=== PATIENT | female | born 1955 | race Caucasian/White ===

== ENCOUNTER 2017-06-21 19:26 | Emergency (ER) | payer MEDICAID ==
[~2017-06-21] VITALS: Ht 160 cm; Wt 98.4 kg
[~2017-06-21 19:26] MED LIST: HOME OXYGEN; VALIUM5 MG PO; VENTOLIN H0.09 MG/A1 INH; XOP0.63
[2017-06-21 21:22] LABS: BASOPHIL % 0.5 % (0-2); PLATELET COUNT 214 x10^3mcL (130-400); RED CELL DISTRIBUTION WIDTH 16.4 % (11.5-14.5)
[2017-06-21 21:26] LABS: CALCIUM 9.1 mg/dL (8.5-10.1); CARBON DIOXIDE 24.9 mmol/L (21-32); CHLORIDE SERUM 106 mmol/L (98-107); CREATININE SERUM 0.7 mg/dL (0.6-1.0); GFR1 > 60 mL/min; GLUCOSE SERUM 107 mg/dL (74-106); POTASSIUM SERUM 3.7 mmol/L (3.5-5.1); SODIUM SERUM 139 mmol/L (136-145)
[2017-06-21 21:30] LABS: ALKALINE PHOSPHATASE 99 U/L (46-116); ALT/SGPT 17 U/L (14-59); AST/SGOT 11 U/L (15-37); BILIRUBIN TOTAL 0.3 mg/dL (0.20-1.00); TOTAL PROTEIN, SERUM 7.6 g/dL (6.4-8.2)
[2017-06-21 21:32] LABS: ALBUMIN 3.3 g/dL (3.4-5.0)
[2017-06-21 21:33] VITALS: BP 138/88
== END 2017-06-21 21:33 | disposition home or self-care (01) ==
LOC: ED 19:26
PROVIDERS: Emergency Medicine
DX: M79.641 Pain in right hand (principal); M79.89 Other specified soft tissue disorders; F17.200 Nicotine dependence, unspecified, uncomplicated; J44.9 Chronic obstructive pulmonary disease, unspecified; Z88.5 Allergy status to narcotic agent; Z88.8 Allergy status to other drugs, medicaments and biological substances; Z71.6 Tobacco abuse counseling; Z88.7 Allergy status to serum and vaccine
CPT/HCPCS: 36415; 99406; J1100

== ENCOUNTER 2017-06-22 22:14 | Emergency (ER) | payer MEDICAID ==
[2017-06-22 22:21] VITALS: BP 150/107
== END 2017-06-22 23:18 | disposition left against medical advice (07) ==
LOC: ED 22:14
DX: Z53.21 Procedure and treatment not carried out due to patient leaving prior to being seen by health care provider (principal)

== ENCOUNTER 2019-02-19 00:21 | Emergency (ER) | payer MEDICAID ==
[~2019-02-19] VITALS: Ht 160 cm; Wt 81.6 kg
[2019-02-19 00:26] VITALS: Ht 160 cm; Wt 81.6 kg
[2019-02-19 01:33] LABS: BASOPHIL % 0.6 % (0-2); PLATELET COUNT 231 x10^3mcL (130-400)
[2019-02-19 01:50] LABS: CALCIUM 9.2 mg/dL (8.5-10.1); CARBON DIOXIDE 27.8 mmol/L (21-32); CHLORIDE SERUM 108 mmol/L (98-107); CREATININE SERUM 0.9 mg/dL (0.6-1.0); GFR1 > 60 mL/min; GLUCOSE SERUM 108 mg/dL (74-106); POTASSIUM SERUM 3.4 mmol/L (3.5-5.1); SODIUM SERUM 145 mmol/L (136-145)
[2019-02-19 01:55] LABS: ALKALINE PHOSPHATASE 76 U/L (46-116); ALT/SGPT 20 U/L (14-59); AST/SGOT 12 U/L (15-37); BILIRUBIN TOTAL 0.47 mg/dL (0.20-1.00); CHOLESTEROL 155 mg/dL (<200); LIPASE 53 IU/L (73-393); TRIGLYCERIDES 123 mg/dL (<150)
[2019-02-19 01:57] LABS: T3 TOTAL 1.05 ng/mL
[2019-02-19 01:58] LABS: FREE T4 0.98 ng/dL (0.76-1.46); FREE THYROXINE INDEX 2.6 ug/dL (1.4-4.5); RED CELL DISTRIBUTION WIDTH 16.9 % (11.5-14.5); T4(THYROXINE) 7.8 ug/dL (4.7-13.3)
[2019-02-19 01:59] LABS: ALBUMIN 3.3 g/dL (3.4-5.0); CHOLESTEROL/HDL RATIO 5.3; HDL CHOLESTEROL 29 mg/dL (40-60)
[2019-02-19 03:04] VITALS: BP 167/89
== END 2019-02-19 03:04 | disposition home or self-care (01) ==
LOC: ED 00:21
PROVIDERS: Specialist
DX: R60.9 Edema, unspecified (principal); R07.89 Other chest pain; R51 Headache; I10 Essential (primary) hypertension; F43.0 Acute stress reaction; J44.9 Chronic obstructive pulmonary disease, unspecified; F41.9 Anxiety disorder, unspecified; Z88.5 Allergy status to narcotic agent; Z88.8 Allergy status to other drugs, medicaments and biological substances
CPT/HCPCS: 36415; 83880; 84439; Q0092

== ENCOUNTER 2019-08-05 23:31 | Emergency (ER) | payer MEDICAID ==
[~2019-08-05] VITALS: Ht 160 cm; Wt 99.3 kg
[2019-08-05 23:40] VITALS: Ht 160 cm; Wt 99.3 kg
[2019-08-06 00:42] LABS: BASOPHIL % 0.2 % (0-2); PLATELET COUNT 241 x10^3mcL (130-400)
[2019-08-06 00:44] LABS: RED CELL DISTRIBUTION WIDTH 16.2 % (11.5-14.5)
[2019-08-06 00:53] LABS: CALCIUM 8.5 mg/dL (8.5-10.1); CARBON DIOXIDE 30.6 mmol/L (21-32); POTASSIUM SERUM 3.7 mmol/L (3.5-5.1)
[2019-08-06 00:57] LABS: ALBUMIN 3.2 g/dL (3.4-5.0); BILIRUBIN TOTAL 0.3 mg/dL (0.20-1.00); TOTAL PROTEIN, SERUM 7.1 g/dL (6.4-8.2)
[2019-08-06 02:04] VITALS: BP 142/70
== END 2019-08-06 02:04 | disposition home or self-care (01) ==
LOC: ED 23:31
PROVIDERS: Emergency Medicine
DX: J44.1 Chronic obstructive pulmonary disease with (acute) exacerbation (principal)
CPT/HCPCS: 83880; 87804; J2405; J2930; J7613; J7644; Q0092

== ENCOUNTER 2019-09-18 20:43 | Observation (INO) | payer OTHER ==
[~2019-09-18] VITALS: Ht 160 cm; Wt 103.4 kg
[2019-09-18 21:55] LABS: BASOPHIL % 0.3 % (0-2); PLATELET COUNT 253 x10^3mcL (130-400)
[2019-09-18 21:56] LABS: RED CELL DISTRIBUTION WIDTH 15.1 % (11.5-14.5)
[2019-09-18 22:13] LABS: CALCIUM 8.8 mg/dL (8.5-10.1); CARBON DIOXIDE 27.8 mmol/L (21-32); POTASSIUM SERUM 4.1 mmol/L (3.5-5.1)
[2019-09-18 22:17] LABS: ALBUMIN 3.4 g/dL (3.4-5.0); BILIRUBIN TOTAL 0.2 mg/dL (0.20-1.00); TOTAL PROTEIN, SERUM 7.5 g/dL (6.4-8.2)
[2019-09-18 22:30] LABS: CK-MB 0.9 ng/mL (0-3.6)
[2019-09-18 22:54] LABS: UA SPECIFIC GRAVITY 1.025 (1.005-1.035); microscopic required? YES; urine erythrocyte 2+ (NEGATIVE)
[2019-09-18] MEDS ORDERED: AVAPRO150 MG PO (23:45)
[2019-09-18] MEDS ORDERED: MICROZIDE12.5 MG PO (23:46)
[2019-09-19 00:40] VITALS: BP 128/63
[2019-09-19 00:46] VITALS: Ht 160 cm; Wt 103.4 kg
[2019-09-19 04:33] VITALS: BP 128/63
[2019-09-19 05:33] VITALS: BP 116/41
[2019-09-19 06:43] LABS: BASOPHIL % 0.3 % (0-2); PLATELET COUNT 216 x10^3mcL (130-400)
[2019-09-19 07:00] LABS: BILIRUBIN TOTAL 0.3 mg/dL (0.20-1.00); CALCIUM 8.3 mg/dL (8.5-10.1); CARBON DIOXIDE 30.8 mmol/L (21-32); TOTAL PROTEIN, SERUM 6.4 g/dL (6.4-8.2)
[2019-09-19 07:01] LABS: ALBUMIN 2.9 g/dL (3.4-5.0)
[2019-09-19 07:17] LABS: RED CELL DISTRIBUTION WIDTH 15.1 % (11.5-14.5)
[2019-09-19 08:47] VITALS: BP 128/68
[2019-09-19] MEDS ORDERED: TUSSIN CF COUG118 ML PO (10:42)
[2019-09-19] MEDS ORDERED: ZITHROMAX1 GM/Packe PO (10:45)
[2019-09-19] MEDS ORDERED: METHYLPREDNISOLO4 M2 PO (10:45)
[2019-09-19 11:28] VITALS: BP 128/75
== END 2019-09-19 11:40 | disposition home or self-care (01) ==
LOC: ED 20:43 → DU 22:39
PROVIDERS: Emergency Medicine; ADMIT Internal Medicine
DX: J44.1 Chronic obstructive pulmonary disease with (acute) exacerbation (principal); R09.02 Hypoxemia; F41.8 Other specified anxiety disorders; I10 Essential (primary) hypertension; E78.5 Hyperlipidemia, unspecified; F17.210 Nicotine dependence, cigarettes, uncomplicated
CPT/HCPCS: 87804; G0378; J0456; J0696; J1644; J1885; J2405; J2930; J7050; J7620; J7626; Q0092